=== PATIENT | female | born 1980 | race Two or more races ===

== ENCOUNTER 2017-05-02 19:21 | Emergency (ER) | payer OTHER, SELFPAY ==
--- NOTE | 2017-05-02 20:52 | HMH.EDUROGF ---
ED Disposition Clinical Impression: Flank pain, acute Disposition: Home, Self-Care Condition on Discharge: Good Instructions: DI for Low Back Pain Additional Instructions: fluids and see pcp for follow up Referrals: Provider,Referral, [Primary Care Provider] - - Critical Care Critical Care Time: No Attestation: On 05/02/17, the high probability of a clinically significant, sudden or life threatening deterioration of the following system(s) required my full and direct attention, intervention and personal management. The time I documented below is in addition to time spent performing reported procedures but includes the following listed in this critical care notation. Medical Decision Making - Medical Records Medical records reviewed: Yes: I reviewed the patient's medical records. Vital Signs: 05/02/17 20:57 Temperature 98.5 F Temperature Source Oral Pulse Rate [Left Brachial] 65 Respiratory Rate 14 Blood Pressure [Right Arm] 112/74 Blood Pressure Mean [Right Arm] 86 Blood Pressure Source [Right Arm] Manual Cuff/ Doppler Blood Pressure Position [Right Arm] Sitting 02 Sat by Pulse Oximetry 98 Oxygen Delivery Method Room Air - Lab Data Lab Results 05/02/17 21:00: Urine Color Yellow, Urine Appearance Clear, Urine pH 8.0, Ur Specific [place] 1.015, Urine Protein Negative, Urine Glucose (UA) Negative, Urine Ketones Negative, Urine Blood Negative, Urine Nitrate Negative, Urine Bilirubin Negative, Urine Urobilinogen 0.2, Ur Leukocyte Esterase Negative, Urine RBC 3-5, Urine WBC Occasional, Ur Squamous Epith Cells 20-50, Urine Bacteria Trace 05/02/17 21:00: WBC 7.6, RBC 4.90, Hgb 13.3, Hct 41.0, MCV 83.7, MCH 27.2, MCHC 32.6, RDW 12.7, Plt Count 301, MPV 8.0, Neut % (Auto) 54.0, Lymph % (Auto) 36.4, [place] % (Auto) 5.1, Eos % (Auto) 3.5, Baso % (Auto) 1.0, Neut # (Auto) 4.1, Lymph # (Auto) 2.8, [place] # (Auto) 0.4, Eos # (Auto) 0.3, Baso # (Auto) 0.1 05/02/17 21:00: Sodium 139, Potassium 4.4, Chloride 103, Carbon Dioxide 28, Anion Gap 12.4, BUN 10, Creatinine 0.58, Estimated Creat Clear 120, Estimated GFR 118, Est GFR ( Amer) 143, Glucose 102, Calcium 9.1, Total Bilirubin 0.2, AST 48 H, ALT 34, Alkaline Phosphatase 81, Total Protein 7.9, Albumin 4.1, Globulin 3.8 H, Albumin/Globulin Ratio 1.1 Result diagrams: 05/02/17 21:00 05/02/17 21:00 Orders (Tests/Meds): ORDERS Category Date Time Status CT abdomen pelvis wo con Stat Cat Scan 05/02/17 21:20 Taken - CT Data CT Scan: Abdomen, Pelvis Time Received: 22:[address] Reviewed: Yes: I have viewed the radiologist's interpretation Preliminary Findings: Normal/NAD - Nikita Inquiry Pt receiving controlled substance: No Female Urogenital HPI - General Stated complaint: Mid Back Pain Time Seen by Provider: 05/02/17 20:52 Mode of Arrival: Ambulatory Source of Information: Patient, Medical Record Limitations: No Limitations Description of Symptoms (Recalled from ER Triage Doc. by RN): pt c/o pain in the lower back that has been ongoing for a couple of days and her urine has been dark - History of Present Illness HPI Narrative[facility] Complaint: other (back pain) Onset (ago): day(s) Radiation: other (l/s pain) Severity: moderate Quality: sharp Relieving factors: none Urinary Symptoms: other (dark urine ) - Related Data Home Medications Medication Instructions Recorded Confirmed No Known Home Medications [No 05/02/17 05/02/17 Known Home Medications] Allergies Allergy/AdvReac Type Severity Reaction Status Date / Time No Known Allergies Allergy Verified 05/02/17 21:00 [facility] History I have reviewed the patient's past medical history: Yes Medical History: Denies:: Cancer, Diabetes Mellitus Type 1, Diabetes Mellitus Type 2, MRSA Other Surgeries: Yes: BSO, Amputation: No Fractures: No - *Social History Smoking Status: Never smoker Alcohol Intake: never
[2017-05-02 20:57] VITALS: BP 112/74; PULSE 65; RESP 14; TEMP 36.9; O2SAT 98; BMI 28.8
[2017-05-02 21:06] LABS: Microscopic, Urine URINE MICROSCOPIC (MICROSCOPIC)
[2017-05-02 21:08] LABS: Basophils # 0.1 K/mm3 (0-0.2); Eosinophils # 0.3 K/mm3 (0.0-0.4); Eosinophils % 3.5 % (0.1-12.0); Hemoglobin 13.3 g/dL (12.2-16.2); Lymphocytes # 2.8 K/mm3 (0.7-4.5); Lymphocytes % 36.4 K/mm3 (10-50); Mean Corpuscular HGB Conc 32.6 g/dL (31.8-35.4); Mean Corpuscular Hemoglobin 27.2 pg (27.0-31.2); Mean Corpuscular Volume 83.7 fl (81-99); Monocytes # 0.4 K/mm3 (0.1-1.0); Monocytes % 5.1 % (1.7-9.3); Neutrophils # 4.1 K/mm3 (1.8-7.8); Platelet Count 301 K/mm3 (142-424); Red Cell Distribution Width 12.7 % (11.5-17.5); White Blood Count 7.6 K/mm3 (4.8-10.8)
[2017-05-02 21:09] LABS: Appearance,Urine CLEAR (Clear); Bilirubin,Urine Negative (Negative); Blood, Urine Negative (Negative); Color,Urine YELLOW (Yellow); Glucose,Urine (UA) Negative (Negative); Ketones,Urine Negative (Negative); Leukocyte Esterase,Urine Negative (Negative); Nitrate,Urine Negative (Negative); Protein,Urine Negative (Negative); Specific Gravity, Urine 1.015 (1.005-1.030); Urobilinogen,Urine 0.2 EU/dl (0.2)
[2017-05-02 21:20] LABS: Alanine Aminotransferase 34 U/L (12-78); Albumin Level 4.1 gm/dL (3.4-5.0); Albumin/Globulin Ratio 1.1 (1.1-1.8); Alkaline Phosphatase 81 U/L (46-116); Anion Gap 12.4 mEq/L (5-15); Aspartate Amino Transferase 48 U/L (15-37); Bilirubin,Total 0.2 mg/dL (0.2-1.0); Blood Urea Nitrogen 10 mg/dL (7-18); Calcium 9.1 mg/dL (8.5-10.1); Carbon Dioxide 28 mmol/L (21.0-32.0); Chloride 103 mmol/L (98-107); Creatinine Clearance Estimated 120 mL/min (0-300); Creatinine,Serum 0.58 mg/dL (0.55-1.02); Estimated Glomerular Filt Rate 118 ml/min (>60); GFR (African American) 143 ML/MIN (>60); Globulin 3.8 gm/dl (1.3-3.2); Glucose 102 mg/dL (74-106); Potassium 4.4 mmoL/L (3.5-5.1); Sodium 139 mmol/L (136-145); Total Protein,Serum 7.9 gm/dL (6.4-8.2)
--- NOTE | 2017-05-02 21:20 | CT_ITS ---
CT abdomen pelvis wo con CLINICAL INDICATION: Flank pain, abdominal pain, pelvic pain ITS.REASON: flank pain ORDERING PHYSICIAN: Nancy Pizarro MD PATIENT AGE: 36 years COMPARISON: None TECHNIQUE: Axial images obtained with sagittal and coronal reformats. PROCEDURE: Oral Contrast: None IV Contrast: None . FINDINGS: Lower thorax: Calcified granulomas present in the right lung base. Noncalcified nodular opacity is present in the left lung base laterally at 5 mm and could be due to noncalcified granuloma. The liver, spleen, adrenal glands, and pancreas have an unremarkable unenhanced CT appearance. There are multiple punctate calculi of both kidneys measuring up to 4 mm in the mid polar region on the right and 2 mm in the mid polar region on the left. No obstructing renal or ureteral calculi. No hydronephrosis. Unremarkable appendix. There are bilateral tubal ligation clips. Left ovary is somewhat prominent measuring up to 4.7 x 3.3 cm. Pelvic ultrasound may provide further evaluation if clinically warranted. No significant free fluid is evident. The mild amount retained colonic feces in the rectosigmoid region. No intestinal obstruction or free air. No acute bony anomalies. IMPRESSION: 1. Nonobstructing bilateral renal calculi. 2. Fullness in the left adnexal region probably representing slightly enlarged ovary which may be better evaluated with ultrasound if clinically warranted. 3. 5 mm noncalcified nodule left lower lobe
[2017-05-02 21:32] LABS: Bacteria,Urine Trace /lpf; Squamous Epithelial Cell,Urine 20-50 #/hpf (0-5); WBC,Urine Occasional #/hpf (0-3)
[2017-05-02 23:03] VITALS: BP 113/67; RESP 18; TEMP 37; O2SAT 100
== END 2017-05-02 23:18 | disposition home or self-care (01) ==
PROVIDERS: Emergency Provider Emergency Medicine
DX: R10.9 Unspecified abdominal pain (principal)
CPT/HCPCS: 74176; 80053; 81001; 85025; 99282

== ENCOUNTER 2022-11-29 17:00 | Emergency (ER) | payer OTHER, SELFPAY ==
[2022-11-29 17:02] VITALS: BP 135/57; PULSE 89; RESP 17; TEMP 36.4; O2SAT 100; BMI 30.2
--- NOTE | 2022-11-29 17:13 | ECG_ITS ---
APPROVED REPORT Exam: Resting ECG HR:78 bpm ECG Measurements Heart Rate 78 AXES FL 147 P 43 QRSd 82 QRS 25 QT 338 T 11 QTc 371 Conclusion SINUS RHYTHM NORMAL ECG UNCONFIRMED REPORT Electronically signed by : Moiz Alejandro MD 11/30/2022 17:19:25
[2022-11-29 17:29] LABS: Basophils # 0.1 K/mm3 (0-0.2); Basophils % 0.6 % (0.1-2.0); Eosinophils # 0.2 K/mm3 (0.0-0.4); Eosinophils % 2.3 % (0.1-12.0); Hematocrit 41.8 % (37.0-47.0); Hemoglobin 13.7 g/dL (12.2-16.2); Lymphocytes # 1.9 K/mm3 (0.7-4.5); Lymphocytes % 23.3 % (10-50); Mean Corpuscular HGB Conc 32.8 g/dL (31.8-35.4); Mean Corpuscular Hemoglobin 26.8 pg (27.0-31.2); Mean Corpuscular Volume 81.8 fl (81-99); Mean Platelet Volume 8.4 fl (7.4-10.4); Monocytes # 0.4 K/mm3 (0.1-1.0); Monocytes % 4.5 % (1.7-9.3); Neutrophils # 5.8 K/mm3 (1.8-7.8); Neutrophils % 69.2 % (37.0-80.0); Platelet Count 357 K/mm3 (142-424); Red Blood Count 5.11 M/mm3 (4.20-5.40); Red Cell Distribution Width 13.1 % (11.5-17.5); White Blood Count 8.3 K/mm3 (4.8-10.8)
[2022-11-29 17:41] LABS: Chloride 101 mmol/L (98-107); Potassium 3.6 mmoL/L (3.5-5.1); Sodium 137 mmol/L (136-145)
[2022-11-29 17:43] LABS: Blood Urea Nitrogen 18 mg/dl (7-17)
[2022-11-29 17:44] LABS: Alanine Aminotransferase 26 U/L (12-78); Albumin Level 4.6 g/dl (3.5-5.0); Albumin/Globulin Ratio 1.3 (1.1-1.8); Alkaline Phosphatase 70 U/L (38-126); Anion Gap 16.6 mEq/L (5-15); Aspartate Amino Transferase 43 U/L (14-36); Bilirubin,Total 0.6 mg/dl (0.2-1.3); Carbon Dioxide 23 mmol/L (22.0-30.0); Globulin 3.5 g/dL (1.3-3.2); Total Protein,Serum 8.1 g/dl (6.3-8.2)
[2022-11-29 17:45] LABS: Calcium 10.8 mg/dl (8.4-10.2); Glucose 96 mg/dl (74-100)
[2022-11-29 17:50] LABS: Creatinine Clearance Estimated 57 mL/min (50-200); Estimated Glomerular Filt Rate 50 ml/min (>60); GFR (African American) 60 ML/MIN (>60)
--- NOTE | 2022-11-29 17:52 | HMH.EDGENADL ---
Discharge Plan Disposition Chief Complaint: Weakness Prescriptions Prescriptions: No Action No Known Home Medications No Known Home Medications Referrals Follow up/Referrals: Dwight Hancock MD [Primary Care Provider] - See instructions Activity Restrictions/Add. Instructions Additional Instructions/Restrictions: At this time was felt you are safe to be discharged home. Please drink a lot of water at home as you are able. You had slightly elevated kidney function today. Please follow-up with your family doctor in 1 week for reassessment. Clinical Impressions Clinical Impression: Vasovagal episode Discharge ED Provider: Raj Carranza General Adult HPI General Chief complaint: Weakness Stated complaint: weak, shaky Time Seen by Provider: 11/29/22 17:46 Mode of Arrival: Wheelchair Limitations: No Limitations Description of Symptoms (Recalled from ER Triage Doc. 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 HAS HAD SIMILAR EPISODES, DID NOT CHECK B/P. REPORTS INCREASED HR, WEAKNESS. PT DRANK WATER AND POURED WATER OVER HER HEAD. DENIES LOC History of Present Illness HPI narrative: Patient is a 42-year-old female who presents emergency department for evaluation of lightheadedness. Patient was just done completing a set of squats when she became lightheaded, tunnel vision feeling as though she was about to pass out. Symptoms partially resolved with splashing of water on her face. She has since felt globally weak however has otherwise been at her baseline prior to arrival. Denies trauma. No other acute complaints at this time. Related Data Home Medications Medication Instructions Recorded Confirmed No Known Home Medications 05/02/17 05/02/17 No Known Home Medications 05/02/17 05/02/17 Allergies Allergy/AdvReac Type Severity Reaction Status Date / Time No Known Allergies Allergy Unverified 05/02/17 18:[address] [facility] Disclaimer: The information contained in this section may have been updated after the patient was seen, as this information can be updated by other users. Social History (System 05/06/17 @ 14:11 by Kizzy Khoury) Smoking Status: Never smoker alcohol intake: never substance use type: denies use current occupational status: other Travel in the last 8 weeks: None ROS Obtained: Yes Systems reviewed as appropriate & no additional complaints except as documented Physical Exam General General appearance: alert and in no apparent distress Head Head exam: atraumatic and normocephalic Eye Eye exam: Present PERRL and EOMI ENT ENT exam: Present mucous membranes moist Neck Neck exam: Present normal inspection Chest Chest inspection: Present normal inspection and symmetric chest wall rise Respiratory Respiratory exam: Present normal lung sounds bilaterally; Absent respiratory distress Cardiovascular Cardiovascular exam: Present regular rate and normal rhythm Abdominal Exam Abdominal exam: Present soft Extremities Exam Extremities exam: Present normal inspection Neurological Exam Neurological exam: Present alert, CN II-XII intact and motor sensory deficit Psychiatric Psychiatric exam: Present normal affect Skin Skin exam: Present warm and dry Medical Decision Making Nikita Inquiry Pt receiving controlled substance: No Vital Signs: 11/29/22 17:02 Temperature 97.5 F L Temperature Source Oral Pulse Rate [Apical] 89 Respiratory Rate 17 Blood Pressure [Right Arm] 135/57 L Blood Pressure Mean [Right Arm] 83 Blood Pressure Source [Right Arm] Automatic Cuff Blood Pressure Position [Right Arm] Sitting 02 Sat by Pulse Oximetry 100 Oxygen Delivery Method Room Air Lab Data Lab Results 11/29/22 17:09: WBC 8.3, RBC 5.11, Hgb 13.7, Hct 41.8, MCV 81.8, MCH 26.8 L, MCHC 32.8, RDW 13.1, Plt Count 357, MPV 8.4, Neut % (Auto) 69.2, Lymph % (Auto) 23.3, [place] % (Auto) 4.5, Eos % (Auto) 2.3, Baso % (Auto) 0.6, Neut
[2022-11-29 18:00] LABS: HCG Qualitative, Serum Negative (Negative)
[2022-11-29 18:16] VITALS: BP 109/66; PULSE 73; RESP 18; TEMP 36.8; O2SAT 100
== END 2022-11-29 18:18 | disposition home or self-care (01) ==
PROVIDERS: Emergency Provider Emergency Medicine; PCP Internal Medicine
DX: R55 Syncope and collapse (principal); R42 Dizziness and giddiness
CPT/HCPCS: 80053; 84703; 85025; 93005; 99285